=== PATIENT | male | born 1970 | race Caucasian/White ===

== ENCOUNTER 2020-06-18 12:56 | Emergency (ER) | payer MEDICAID ==
[~2020-06-18] VITALS: Ht 170.2 cm; Wt 77.1 kg
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
[2020-06-18] MEDS ORDERED: HYDROCODONE/APAP 5/325MG TABLET PO ONE (13:30)
[2020-06-18] MEDS ORDERED: HYDROCODONE/APAP 5/325MG TABLET ONE (14:01)
--- NOTE | 2020-06-18 14:09 | NUR ---
Patient given written and verbal discharge instructions. Patient verbalizes understanding of instructions. Patient is ambulatory with steady gait. Refuses offer of [facility] placement. Patient given list of available shelters in surrounding area. PAtient in proper clothing upon discharge. Name band removed. All belongings w the patient.
[2020-06-18 14:12] VITALS: BP 164/86
== END 2020-06-18 14:13 | disposition home or self-care (01) ==
LOC: ER 13:05
DX: S46.012A Strain of muscle(s) and tendon(s) of the rotator cuff of left shoulder, initial encounter (principal); Z88.6 Allergy status to analgesic agent; W22.8XXA Striking against or struck by other objects, initial encounter; Y93.89 Activity, other specified; Y92.89 Other specified places as the place of occurrence of the external cause; Y99.8 Other external cause status
CPT/HCPCS: 73030-TC

== ENCOUNTER 2020-07-20 08:02 | Emergency (ER) | payer MEDICAID ==
[~2020-07-20] VITALS: Ht 170.2 cm; Wt 88.5 kg
[2020-07-20 08:15] VITALS: BP 145/78
[2020-07-20] MEDS ORDERED: KETOROLAC TROMETHAMINE INJ 60 MG/2 ML VIAL IM ONE (08:28)
[2020-07-20] MEDS ORDERED: MORPHINE SULFATE INJ 2 MG/ML DISP.SYRIN ONE (08:28)
[2020-07-20] MEDS: KETOROLAC TROMETHAMINE INJ 60 MG/2 ML VIAL IM ONE (08:33)
[2020-07-20] MEDS: MORPHINE SULFATE INJ 2 MG/ML DISP.SYRIN IM ONE (08:33)
--- NOTE | 2020-07-20 09:43 | NUR ---
Patient given written and verbal discharge instructions. Patient verbalizes understanding of instructions. Patient is ambulatory with steady gait. Refuses offer of skilled nursing placement. Patient given list of available shelters in surrounding area.
== END 2020-07-20 09:45 | disposition home or self-care (01) ==
LOC: ER 08:04
DX: S39.012A Strain of muscle, fascia and tendon of lower back, initial encounter (principal); Z88.6 Allergy status to analgesic agent; Y08.89XA Assault by other specified means, initial encounter; Y93.89 Activity, other specified; Y92.89 Other specified places as the place of occurrence of the external cause; Y99.8 Other external cause status
CPT/HCPCS: 72131; 96372 ×2; 99284; J1885; J2270